=== PATIENT | male | born 1950 | race Caucasian/White ===

== ENCOUNTER 2022-11-21 11:24 | Inpatient (IN) ==
[2022-11-21] MEDS ORDERED: VANCOMYCIN INJ 1,000 MG in SODIUM CHLORIDE 0.9% 250 ML IV STA (12:16)
[2022-11-21] MEDS ORDERED: MORPHINE 2 MG/1 ML SYRINGE IV ONE (12:16)
[2022-11-21] MEDS ORDERED: ONDANSETRON 4 MG/2 ML VIAL IV ONE (12:16)
[2022-11-21 13:36] LABS: Basophils % 0.8 % (0.0-0.8); Eosinophils % 2.3 % (0.00-10.9); Hematocrit 22.8 VOL% (42.0-52.0); Hemoglobin 7.6 GM/DL (14.0-18.0); Immature Granulocytes % 10.1 %; Immature Granulocytes Absolute 0.13 #; Lymphocytes # 0.2 10*3/uL (1.4-4.0); Lymphocytes % 17.8 % (21.2-54.2); Mean Corpuscular HGB Conc 33.3 GM/DL (32-36); Mean Corpuscular Volume 93.8 FL (87-102); Mean Platelet Volume 8.5 FL (9.6-12.0); Monocytes # 0.2 10*3/uL (0.11-0.8); Monocytes % 16.3 % (1.7-12.7); NRBC # 0.06 10*3/uL; Neutrophils % 52.7 % (38.7-73.9); Red Blood Count 2.43 MC/CUMM (3.8-5.5); Red Cell Distribution Width 17.3 % (9.3-17.3); White Blood Count 1.3 T/CUMM (4-12)
[2022-11-21 13:45] LABS: Platelet Count 12 T/CUMM (130-400)
[2022-11-21 13:46] LABS: INR 1.1; PT Patient Result 11.9 SECS (10.1-12.1)
[2022-11-21] MEDS ORDERED: SODIUM CHLORIDE 0.9% 1,000 ML IV PRN (14:02)
[2022-11-21 14:07] LABS: Alanine Aminotransferase 21 U/L (16-61); Albumin 3.4 G/DL (3.4-5.0); Alkaline Phosphatase > 2330 U/L (45-117); Aspartate Amino Transferase 392 U/L (0-37); Blood Urea Nitrogen 13 MG/DL (7-18); Carbon Dioxide 27 MMOL/L (21-32); Chloride 103 MMOL/L (98-107); Glucose 163 MG/DL (74-106); Potassium 3.4 MMOL/L (3.5-5.1); Sodium 136 MMOL/L (136-145); Total Protein 5.5 G/DL (6.4-8.2)
[2022-11-21 14:30] LABS: Band Neutrophils 4 % (0-10); Eosinophils 2 % (0-10); Lymphocytes 23 % (20-55); Metamyelocytes 2 %; Myelocytes 1 %; Nucleated Red Blood Cells 2 /100 WBC (0-5); Total Cells Counted 100
[2022-11-21 14:31] LABS: Atypical Lymphocytes Few; Reactive Lymphocytes Slight
[2022-11-21 14:33] LABS: Platelet Estimate Decreased
[2022-11-21] MEDS ORDERED: ACETAMINOPHEN 325 MG TABLET PO PRN (15:32)
[2022-11-21] MEDS ORDERED: GLUCAGON 1 MG VIAL IM PRN (15:35)
[2022-11-21] MEDS ORDERED: DEXTROSE 10% 250 ML BAG IV PRN (15:35)
[2022-11-21] MEDS: INSULIN REGULAR 100 UNIT/ML SUBCUT SCH ×2 (16:30→20:22)
[2022-11-21] MEDS ORDERED: fentaNYL 100 MCG/HR PATCH TRANSDERM SCH (18:00)
[2022-11-21] MEDS: LORATADINE 10 MG TABLET PO SCH (20:20)
[2022-11-22 00:53] LABS: RBC,Urine 2 /HPF (0-4)
[2022-11-22 00:55] LABS: Bilirubin,Urine Negative (Negative); Blood, Urine Negative (Negative); Glucose,Urine (UA) Negative (Negative); Ketones,Urine Negative (Negative); Nitrite,Urine Negative (Negative); Protein,Urine Negative (Negative); Urine Appearance Clear (Clear); Urine Color Yellow (Yellow)
[2022-11-22 04:24] LABS: Basophils % 1.8 % (0.0-0.8); Eosinophils % 5.5 % (0.00-10.9); Hematocrit 24.2 VOL% (42.0-52.0); Immature Granulocytes % 9.1 %; Immature Granulocytes Absolute 0.05 #; Lymphocytes # 0.2 10*3/uL (1.4-4.0); Mean Corpuscular HGB Conc 33.1 GM/DL (32-36); Mean Corpuscular Volume 93.8 FL (87-102); Mean Platelet Volume 10.3 FL (9.6-12.0); Monocytes # 0.1 10*3/uL (0.11-0.8); Monocytes % 21.8 % (1.7-12.7); NRBC # 0.09 10*3/uL; Neutrophils % 21.8 % (38.7-73.9); Platelet Count 57 T/CUMM (130-400); Red Blood Count 2.58 MC/CUMM (3.8-5.5); Red Cell Distribution Width 16.3 % (9.3-17.3)
[2022-11-22 04:34] LABS: Calcium 7.7 MG/DL (8.5-10.1); Osmolality,Calculated 271.8 MOS/KG (273-304)
[2022-11-22 04:42] LABS: White Blood Count 0.6 T/CUMM (4-12)
[2022-11-22 04:48] LABS: Hypochromia Slight; Lymphocytes 30 % (20-55); Microcytosis Slight; Nucleated Red Blood Cells 1 /100 WBC (0-5); Platelet Estimate Decreased; Total Cells Counted 100
[2022-11-22] MEDS: LEVOTHYROXINE 175 MCG TABLET PO SCH (06:13)
[2022-11-22] MEDS: INSULIN REGULAR 100 UNIT/ML SUBCUT SCH ×4 (07:51→21:14)
[2022-11-22] MEDS: DEXAMETHASONE 0.5 MG TABLET PO SCH (10:21)
[2022-11-22] MEDS: cefTRIAXone 2,000 MG in SODIUM CHLORIDE 0.9% 100 ML IV SCH (10:23)
[2022-11-22] MEDS: sitaGLIPtin 25 MG TABLET PO SCH (10:23)
[2022-11-22] MEDS ORDERED: ALBUTEROL 2.5 MG/3 ML NEB RESP TX PRN (10:56)
[2022-11-22] MEDS: CITALOPRAM 20 MG TABLET PO SCH (12:00)
[2022-11-22] MEDS: lisinopriL 10 MG TABLET PO SCH (12:01)
[2022-11-22] MEDS: hydroCHLOROthiazide 12.5 MG CAPSULE PO SCH (12:53)
[2022-11-22] MEDS: allopurinoL 300 MG TABLET PO SCH (12:57)
[2022-11-22] MEDS ORDERED: ZINC OXIDE PASTE 113 GM TUBE TOP PRN (15:40)
[2022-11-22] MEDS: FILGRASTIM-SNDZ 480 MCG/0.8 ML SYRINGE SUBCUT SCH (17:07)
[2022-11-22] MEDS: MULTIVITAMIN (BEROCCA) TABLET PO SCH (17:07)
[2022-11-22] MEDS: PSYLLIUM POWDER 3.7 GM/PACK PO SCH (17:07)
[2022-11-22] MEDS: LORATADINE 10 MG TABLET PO SCH (21:13)
[2022-11-22] MEDS: MULTIVITAMIN (CENTRUM) TABLET PO SCH (21:14)
[2022-11-23 05:33] LABS: Basophils % 1.2 % (0.0-0.8); Eosinophils % 3.7 % (0.00-10.9); Hematocrit 25.1 VOL% (42.0-52.0); Hemoglobin 8.3 GM/DL (14.0-18.0); Immature Granulocytes % 6.2 %; Immature Granulocytes Absolute 0.05 #; Lymphocytes # 0.3 10*3/uL (1.4-4.0); Lymphocytes % 32.1 % (21.2-54.2); Mean Corpuscular HGB Conc 33.1 GM/DL (32-36); Mean Corpuscular Volume 95.1 FL (87-102); Mean Platelet Volume 9.9 FL (9.6-12.0); Monocytes # 0.2 10*3/uL (0.11-0.8); Monocytes % 19.8 % (1.7-12.7); NRBC # 0.05 10*3/uL; Platelet Count 47 T/CUMM (130-400); Red Blood Count 2.64 MC/CUMM (3.8-5.5)
[2022-11-23 05:40] LABS: Calcium 8.4 MG/DL (8.5-10.1); Osmolality,Calculated 276.7 MOS/KG (273-304); Potassium 3.7 MMOL/L (3.5-5.1)
[2022-11-23] MEDS: LEVOTHYROXINE 175 MCG TABLET PO SCH (05:50)
[2022-11-23 06:06] LABS: White Blood Count 0.8 T/CUMM (4-12)
[2022-11-23 06:33] LABS: Band Neutrophils 2 % (0-10); Eosinophils 4 % (0-10); Lymphocytes 34 % (20-55); Nucleated Red Blood Cells 4 /100 WBC (0-5); Platelet Estimate Decreased; Total Cells Counted 100
[2022-11-23 06:34] LABS: Hypochromia Slight
[2022-11-23] MEDS: INSULIN REGULAR 100 UNIT/ML SUBCUT SCH ×4 (07:43→21:50)
[2022-11-23] MEDS: cefTRIAXone 2,000 MG in SODIUM CHLORIDE 0.9% 100 ML IV SCH (09:15)
[2022-11-23] MEDS: FILGRASTIM-SNDZ 480 MCG/0.8 ML SYRINGE SUBCUT SCH (09:16)
[2022-11-23] MEDS: sitaGLIPtin 25 MG TABLET PO SCH (09:17)
[2022-11-23] MEDS: hydroCHLOROthiazide 12.5 MG CAPSULE PO SCH (09:17)
[2022-11-23] MEDS: DEXAMETHASONE 0.5 MG TABLET PO SCH (09:17)
[2022-11-23] MEDS: allopurinoL 300 MG TABLET PO SCH (09:17)
[2022-11-23] MEDS: PSYLLIUM POWDER 3.7 GM/PACK PO SCH (09:18)
[2022-11-23] MEDS: CITALOPRAM 20 MG TABLET PO SCH (09:18)
[2022-11-23] MEDS: lisinopriL 10 MG TABLET PO SCH (09:19)
[2022-11-23] MEDS: MULTIVITAMIN (BEROCCA) TABLET PO SCH (18:58)
[2022-11-23] MEDS ORDERED: SIMVASTATIN 10 MG TABLET PO SCH (21:00)
[2022-11-23] MEDS: LORATADINE 10 MG TABLET PO SCH (21:43)
[2022-11-23] MEDS: MULTIVITAMIN (CENTRUM) TABLET PO SCH (21:43)
[2022-11-23] MEDS: fentaNYL 100 MCG/HR PATCH TRANSDERM SCH (21:44)
[2022-11-24] MEDS: LEVOTHYROXINE 175 MCG TABLET PO SCH (05:39)
[2022-11-24 05:41] LABS: Basophils % 1.2 % (0.0-0.8); Eosinophils # 0.1 10*3/uL (0.0-0.87); Eosinophils % 3.7 % (0.00-10.9); Hematocrit 26.7 VOL% (42.0-52.0); Hemoglobin 8.6 GM/DL (14.0-18.0); Immature Granulocytes % 11.1 %; Immature Granulocytes Absolute 0.18 #; Lymphocytes # 0.4 10*3/uL (1.4-4.0); Lymphocytes % 24.1 % (21.2-54.2); Mean Corpuscular HGB Conc 32.2 GM/DL (32-36); Mean Corpuscular Volume 95.7 FL (87-102); Mean Platelet Volume 10.7 FL (9.6-12.0); Monocytes # 0.3 10*3/uL (0.11-0.8); Monocytes % 17.9 % (1.7-12.7); NRBC # 0.06 10*3/uL; Platelet Count 40 T/CUMM (130-400); Red Blood Count 2.79 MC/CUMM (3.8-5.5); Red Cell Distribution Width 16.9 % (9.3-17.3); White Blood Count 1.6 T/CUMM (4-12)
[2022-11-24 05:59] LABS: Calcium 8.1 MG/DL (8.5-10.1); Osmolality,Calculated 281.3 MOS/KG (273-304); Potassium 3.8 MMOL/L (3.5-5.1)
[2022-11-24 06:13] LABS: Band Neutrophils 3 % (0-10); Eosinophils 9 % (0-10); Hypochromia 1+; Lymphocytes 29 % (20-55); Nucleated Red Blood Cells 13 /100 WBC (0-5); Platelet Estimate Decreased; Total Cells Counted 100
[2022-11-24] MEDS: INSULIN REGULAR 100 UNIT/ML SUBCUT SCH ×4 (08:24→21:00)
[2022-11-24] MEDS ORDERED: MYLANTA/LIDO VISC 2:1 300 ML BOTTLE SWISH/SPIT PRN (09:25)
[2022-11-24] MEDS: cefTRIAXone 2,000 MG in SODIUM CHLORIDE 0.9% 100 ML IV SCH (09:47)
[2022-11-24] MEDS: NAPROXEN 250 MG TABLET PO SCH ×2 (09:47→21:53)
[2022-11-24] MEDS: allopurinoL 300 MG TABLET PO SCH (09:48)
[2022-11-24] MEDS: DEXAMETHASONE 0.5 MG TABLET PO SCH (09:48)
[2022-11-24] MEDS: sitaGLIPtin 25 MG TABLET PO SCH (09:48)
[2022-11-24] MEDS: hydroCHLOROthiazide 12.5 MG CAPSULE PO SCH (09:48)
[2022-11-24] MEDS: CITALOPRAM 20 MG TABLET PO SCH (09:49)
[2022-11-24] MEDS: PSYLLIUM POWDER 3.7 GM/PACK PO SCH (09:49)
[2022-11-24] MEDS: lisinopriL 10 MG TABLET PO SCH (09:50)
[2022-11-24] MEDS: FILGRASTIM-SNDZ 480 MCG/0.8 ML SYRINGE SUBCUT SCH (12:04)
[2022-11-24] MEDS: MULTIVITAMIN (BEROCCA) TABLET PO SCH (18:26)
[2022-11-24] MEDS: LORATADINE 10 MG TABLET PO SCH (21:53)
[2022-11-24] MEDS: MULTIVITAMIN (CENTRUM) TABLET PO SCH (21:54)
[2022-11-25] MEDS: LEVOTHYROXINE 175 MCG TABLET PO SCH (05:26)
[2022-11-25 06:59] LABS: Basophils % 1.4 % (0.0-0.8); Eosinophils # 0.1 10*3/uL (0.0-0.87); Eosinophils % 3.2 % (0.00-10.9); Hematocrit 25.1 VOL% (42.0-52.0); Immature Granulocytes % 1.4 %; Immature Granulocytes Absolute 0.03 #; Lymphocytes # 0.5 10*3/uL (1.4-4.0); Lymphocytes % 22.1 % (21.2-54.2); Mean Corpuscular HGB Conc 31.9 GM/DL (32-36); Mean Corpuscular Volume 96.5 FL (87-102); Mean Platelet Volume 10.9 FL (9.6-12.0); Monocytes # 0.4 10*3/uL (0.11-0.8); Monocytes % 16.7 % (1.7-12.7); NRBC # 0.07 10*3/uL; Neutrophils % 55.2 % (38.7-73.9); Red Cell Distribution Width 17.2 % (9.3-17.3); White Blood Count 2.2 T/CUMM (4-12)
[2022-11-25 07:09] LABS: Albumin 3.2 G/DL (3.4-5.0); Bilirubin,Total 0.6 MG/DL (0.20-1.00); Osmolality,Calculated 277.7 MOS/KG (273-304); Potassium 3.9 MMOL/L (3.5-5.1); Total Protein 5.2 G/DL (6.4-8.2)
[2022-11-25 07:12] LABS: Platelet Count 30 T/CUMM (130-400)
[2022-11-25 07:23] LABS: Band Neutrophils 1 % (0-10); Eosinophils 7 % (0-10); Lymphocytes 27 % (20-55); Metamyelocytes 1 %; Nucleated Red Blood Cells 5 /100 WBC (0-5); Total Cells Counted 100
[2022-11-25 07:24] LABS: Hypochromia Slight; Microcytosis Slight; Platelet Estimate Decreased
[2022-11-25] MEDS: INSULIN REGULAR 100 UNIT/ML SUBCUT SCH ×4 (08:00→21:24)
[2022-11-25] MEDS: allopurinoL 300 MG TABLET PO SCH (08:10)
[2022-11-25] MEDS: DEXAMETHASONE 0.5 MG TABLET PO SCH (08:10)
[2022-11-25] MEDS: hydroCHLOROthiazide 12.5 MG CAPSULE PO SCH (08:10)
[2022-11-25] MEDS: PSYLLIUM POWDER 3.7 GM/PACK PO SCH (08:11)
[2022-11-25] MEDS: NAPROXEN 250 MG TABLET PO SCH ×2 (08:13→21:22)
[2022-11-25] MEDS: sitaGLIPtin 25 MG TABLET PO SCH (08:13)
[2022-11-25] MEDS: cefTRIAXone 2,000 MG in SODIUM CHLORIDE 0.9% 100 ML IV SCH (08:14)
[2022-11-25] MEDS: MORPHINE 2 MG/1 ML SYRINGE IV PRN ×2 (08:21→12:10)
[2022-11-25] MEDS ORDERED: VANCOMYCIN INJ 1,250 MG in SODIUM CHLORIDE 0.9% 250 ML IV SCH (09:00)
[2022-11-25] MEDS: lisinopriL 10 MG TABLET PO SCH (10:28)
[2022-11-25] MEDS: CITALOPRAM 20 MG TABLET PO SCH (10:28)
[2022-11-25] MEDS: VANCOMYCIN INJ 1,750 MG in SODIUM CHLORIDE 0.9% 500 ML IV SCH ×2 (12:03→22:55)
[2022-11-25] MEDS: MULTIVITAMIN (BEROCCA) TABLET PO SCH (18:26)
[2022-11-25] MEDS: MULTIVITAMIN (CENTRUM) TABLET PO SCH (21:22)
[2022-11-25] MEDS: LORATADINE 10 MG TABLET PO SCH (21:22)
[2022-11-25] MEDS: LIDOCAINE 5% PATCH TRANSDERM SCH (21:22)
[2022-11-26 05:38] LABS: Eosinophils # 0.1 10*3/uL (0.0-0.87); Hematocrit 27.2 VOL% (42.0-52.0); Hemoglobin 8.6 GM/DL (14.0-18.0); Immature Granulocytes % 11.4 %; Immature Granulocytes Absolute 0.34 #; Lymphocytes # 0.6 10*3/uL (1.4-4.0); Lymphocytes % 21.5 % (21.2-54.2); Mean Corpuscular HGB Conc 31.6 GM/DL (32-36); Mean Corpuscular Volume 96.1 FL (87-102); Mean Platelet Volume 10.2 FL (9.6-12.0); Monocytes # 0.4 10*3/uL (0.11-0.8); Monocytes % 14.1 % (1.7-12.7); NRBC # 0.13 10*3/uL; Red Blood Count 2.83 MC/CUMM (3.8-5.5); Red Cell Distribution Width 16.9 % (9.3-17.3)
[2022-11-26 05:53] LABS: Platelet Count 27 T/CUMM (130-400)
[2022-11-26 05:58] LABS: Anisocytosis 1+; Band Neutrophils 3 % (0-10); Eosinophils 2 % (0-10); Lymphocytes 23 % (20-55); Nucleated Red Blood Cells 6 /100 WBC (0-5); Total Cells Counted 100
[2022-11-26 05:59] LABS: Ovalocytes Slight; Platelet Estimate Decreased; Tear Drop Cells Slight
[2022-11-26 06:01] LABS: Albumin 3.2 G/DL (3.4-5.0); Bilirubin,Total 0.6 MG/DL (0.20-1.00); Calcium 8.2 MG/DL (8.5-10.1); Osmolality,Calculated 278.5 MOS/KG (273-304); Total Protein 5.8 G/DL (6.4-8.2)
[2022-11-26] MEDS: LEVOTHYROXINE 175 MCG TABLET PO SCH (06:03)
[2022-11-26] MEDS: INSULIN REGULAR 100 UNIT/ML SUBCUT SCH ×4 (09:28→20:57)
[2022-11-26] MEDS: sitaGLIPtin 25 MG TABLET PO SCH (09:34)
[2022-11-26] MEDS: allopurinoL 300 MG TABLET PO SCH (09:34)
[2022-11-26] MEDS: DEXAMETHASONE 0.5 MG TABLET PO SCH (09:34)
[2022-11-26] MEDS: LIDOCAINE 5% PATCH TRANSDERM SCH (09:35)
[2022-11-26] MEDS: NAPROXEN 250 MG TABLET PO SCH ×2 (09:35→20:55)
[2022-11-26] MEDS: CITALOPRAM 20 MG TABLET PO SCH (09:35)
[2022-11-26] MEDS ORDERED: SODIUM CHLORIDE 0.9% 1,000 ML IV PRN (10:49)
[2022-11-26] MEDS: VANCOMYCIN INJ 1,750 MG in SODIUM CHLORIDE 0.9% 500 ML IV SCH (11:12)
[2022-11-26] MEDS: PSYLLIUM POWDER 3.7 GM/PACK PO SCH (14:55)
[2022-11-26] MEDS: cephALEXin 500 MG CAPSULE PO SCH ×3 (14:58→20:55)
[2022-11-26] MEDS: MULTIVITAMIN (BEROCCA) TABLET PO SCH (18:17)
[2022-11-26] MEDS: MULTIVITAMIN (CENTRUM) TABLET PO SCH (20:55)
[2022-11-26] MEDS: LORATADINE 10 MG TABLET PO SCH (20:55)
[2022-11-26] MEDS: fentaNYL 100 MCG/HR PATCH TRANSDERM SCH (20:56)
[2022-11-26] MEDS ORDERED: cephALEXin 500 MG CAPSULE PO SCH (21:00)
[2022-11-27] MEDS: MORPHINE 2 MG/1 ML SYRINGE IV PRN (00:15)
[2022-11-27 05:42] LABS: Basophils % 1.2 % (0.0-0.8); Eosinophils # 0.1 10*3/uL (0.0-0.87); Eosinophils % 2.4 % (0.00-10.9); Hematocrit 26.8 VOL% (42.0-52.0); Hemoglobin 8.6 GM/DL (14.0-18.0); Immature Granulocytes % 8.4 %; Immature Granulocytes Absolute 0.28 #; Lymphocytes # 0.8 10*3/uL (1.4-4.0); Lymphocytes % 22.8 % (21.2-54.2); Mean Corpuscular HGB Conc 32.1 GM/DL (32-36); Mean Corpuscular Volume 96.8 FL (87-102); Mean Platelet Volume 10.1 FL (9.6-12.0); Monocytes # 0.6 10*3/uL (0.11-0.8); Monocytes % 19.2 % (1.7-12.7); NRBC # 0.19 10*3/uL; Platelet Count 42 T/CUMM (130-400); Red Blood Count 2.77 MC/CUMM (3.8-5.5); Red Cell Distribution Width 17.2 % (9.3-17.3); White Blood Count 3.3 T/CUMM (4-12)
[2022-11-27] MEDS: LEVOTHYROXINE 175 MCG TABLET PO SCH (05:57)
[2022-11-27 06:17] LABS: Atypical Lymphocytes Few; Band Neutrophils 23 % (0-10); Eosinophils 1 % (0-10); Lymphocytes 24 % (20-55); Metamyelocytes 6 %; Myelocytes 1 %; Nucleated Red Blood Cells 2 /100 WBC (0-5); Platelet Estimate Decreased; Total Cells Counted 100
[2022-11-27 06:18] LABS: Anisocytosis Slight; Tear Drop Cells Few
[2022-11-27 06:59] LABS: Albumin 3.6 G/DL (3.4-5.0); Bilirubin,Total 0.9 MG/DL (0.20-1.00); Calcium 8.6 MG/DL (8.5-10.1); Osmolality,Calculated 282.3 MOS/KG (273-304); Total Protein 5.9 G/DL (6.4-8.2)
[2022-11-27 07:59] VITALS: BP 149/72
[2022-11-27] MEDS: INSULIN REGULAR 100 UNIT/ML SUBCUT SCH ×2 (08:01→13:06)
[2022-11-27] MEDS ORDERED: lisinopriL 10 MG TABLET PO SCH (09:00)
[2022-11-27] MEDS: cephALEXin 500 MG CAPSULE PO SCH (09:04)
[2022-11-27] MEDS: DEXAMETHASONE 0.5 MG TABLET PO SCH (09:05)
[2022-11-27] MEDS: sitaGLIPtin 25 MG TABLET PO SCH (09:05)
[2022-11-27] MEDS: allopurinoL 300 MG TABLET PO SCH (09:05)
[2022-11-27] MEDS: LIDOCAINE 5% PATCH TRANSDERM SCH (09:07)
[2022-11-27] MEDS: CITALOPRAM 20 MG TABLET PO SCH (09:07)
[2022-11-27] MEDS: PSYLLIUM POWDER 3.7 GM/PACK PO SCH (09:07)
[2022-11-27] MEDS: NAPROXEN 250 MG TABLET PO SCH (09:08)
== END 2022-11-27 12:07 | disposition home or self-care (01) | DRG 638 ==
LOC: N.ED 11:24 → N.EDINP 15:28 → SUATTDRO 15:28 → N.TELES 16:20
PROVIDERS: ADMIT Hospitalist; ATTEND Internal Medicine

== ENCOUNTER 2022-12-03 13:39 | Inpatient (IN) ==
[2022-12-03 15:39] LABS: Basophils % 1.1 % (0.0-0.8); Eosinophils # 0.1 10*3/uL (0.0-0.87); Eosinophils % 2.8 % (0.00-10.9); Hematocrit 24.7 VOL% (42.0-52.0); Hemoglobin 8.2 GM/DL (14.0-18.0); Immature Granulocytes % 10.1 %; Immature Granulocytes Absolute 0.18 #; Lymphocytes # 0.4 10*3/uL (1.4-4.0); Lymphocytes % 21.2 % (21.2-54.2); Mean Corpuscular HGB Conc 33.2 GM/DL (32-36); Mean Corpuscular Volume 92.9 FL (87-102); Mean Platelet Volume 11.1 FL (9.6-12.0); Monocytes # 0.3 10*3/uL (0.11-0.8); Monocytes % 14.5 % (1.7-12.7); NRBC # 0.16 10*3/uL; Neutrophils % 50.3 % (38.7-73.9); Red Blood Count 2.66 MC/CUMM (3.8-5.5); Red Cell Distribution Width 16.5 % (9.3-17.3); White Blood Count 1.8 T/CUMM (4-12)
[2022-12-03 15:41] LABS: Platelet Count 9 T/CUMM (130-400)
[2022-12-03 16:06] LABS: Bilirubin,Total 1.1 MG/DL (0.20-1.00); Calcium 7.6 MG/DL (8.5-10.1); Osmolality,Calculated 274.8 MOS/KG (273-304); Potassium 3.4 MMOL/L (3.5-5.1); Total Protein 5.1 G/DL (6.4-8.2)
[2022-12-03] MEDS ORDERED: PIPERACILLIN/TAZOBACTAM 3,375 MG in SODIUM CHLORIDE 0.9% 100 ML IV STA (16:17)
[2022-12-03 16:23] LABS: RBC,Urine 1 /HPF (0-4)
[2022-12-03 16:25] LABS: Urine Appearance Clear (Clear); Urine Color Yellow (Yellow)
[2022-12-03 16:26] LABS: Bilirubin,Urine Negative (Negative); Blood, Urine Trace mg/dL (Negative); Glucose,Urine (UA) Negative (Negative); Ketones,Urine Negative (Negative); Nitrite,Urine Negative (Negative); Protein,Urine Negative (Negative); Urine Urobilinogen 0.2 eU/dL (<2.0)
[2022-12-03] MEDS ORDERED: VANCOMYCIN INJ 1,500 MG in SODIUM CHLORIDE 0.9% 500 ML IV SCH (17:00)
[2022-12-03] MEDS ORDERED: DEXTROSE 10% 250 ML BAG IV PRN (17:27)
[2022-12-03] MEDS ORDERED: GLUCAGON 1 MG VIAL IM PRN (17:27)
[2022-12-03] MEDS ORDERED: hydrALAZINE 20 MG/1 ML VIAL IV PRN (17:27)
[2022-12-03] MEDS ORDERED: guaiFENesin/DM ER 600-30 MG TABLET PO PRN (17:27)
[2022-12-03] MEDS ORDERED: ACETAMINOPHEN 325 MG TABLET PO PRN (17:27)
[2022-12-03] MEDS ORDERED: ONDANSETRON 4 MG/2 ML VIAL IV PRN (17:27)
[2022-12-03] MEDS ORDERED: ALBUTEROL 2.5 MG/3 ML NEB RESP TX PRN (17:39)
[2022-12-03 17:45] LABS: Band Neutrophils 8 % (0-10); Lymphocytes 24 % (20-55); Nucleated Red Blood Cells 3 /100 WBC (0-5); Total Cells Counted 100
[2022-12-03 17:46] LABS: Ovalocytes Slight; Polychromasia Slight
[2022-12-03 17:47] LABS: Platelet Estimate Decreased
[2022-12-03] MEDS: ALBUTEROL 2.5 MG/3 ML NEB RESP TX SCH (19:41)
[2022-12-03] MEDS ORDERED: SODIUM CHLORIDE 0.9% 1,000 ML IV PRN (19:47)
[2022-12-03] MEDS ORDERED: POTASSIUM CHLORIDE 10 MEQ TABLET PO ONE (19:50)
[2022-12-03 20:01] LABS: % Iron Saturation 98.2 % (18-50)
[2022-12-03 20:13] LABS: Folate 23.82 NG/ML (5.38-24.0)
[2022-12-03] MEDS: INSULIN REGULAR 100 UNIT/ML SUBCUT SCH (21:29)
[2022-12-03] MEDS: CEFEPIME 1,000 MG in SODIUM CHLORIDE 0.9% 100 ML IV SCH (21:45)
[2022-12-04] MEDS: ALBUTEROL 2.5 MG/3 ML NEB RESP TX SCH ×4 (00:25→19:14)
[2022-12-04] MEDS: CEFEPIME 1,000 MG in SODIUM CHLORIDE 0.9% 100 ML IV SCH ×4 (02:05→21:48)
[2022-12-04] MEDS: LEVOTHYROXINE 175 MCG TABLET PO SCH (05:26)
[2022-12-04 05:48] LABS: Basophils % 1.7 % (0.0-0.8); Eosinophils # 0.1 10*3/uL (0.0-0.87); Eosinophils % 2.9 % (0.00-10.9); Hematocrit 23.6 VOL% (42.0-52.0); Hemoglobin 7.8 GM/DL (14.0-18.0); Immature Granulocytes % 10.9 %; Immature Granulocytes Absolute 0.19 #; Lymphocytes # 0.5 10*3/uL (1.4-4.0); Lymphocytes % 28.6 % (21.2-54.2); Mean Corpuscular HGB Conc 33.1 GM/DL (32-36); Mean Corpuscular Volume 91.1 FL (87-102); Mean Platelet Volume 11.8 FL (9.6-12.0); Monocytes # 0.3 10*3/uL (0.11-0.8); Monocytes % 17.1 % (1.7-12.7); NRBC # 0.22 10*3/uL; Neutrophils % 38.8 % (38.7-73.9); Red Blood Count 2.59 MC/CUMM (3.8-5.5); Red Cell Distribution Width 16.7 % (9.3-17.3); White Blood Count 1.8 T/CUMM (4-12)
[2022-12-04 05:50] LABS: Platelet Count 9 T/CUMM (130-400)
[2022-12-04 06:10] LABS: Calcium 8.1 MG/DL (8.5-10.1); Osmolality,Calculated 278.4 MOS/KG (273-304); Potassium 3.1 MMOL/L (3.5-5.1)
[2022-12-04 06:17] LABS: Band Neutrophils 3 % (0-10); Eosinophils 2 % (0-10); Hypochromia Slight; Lymphocytes 37 % (20-55); Microcytosis 1+; Nucleated Red Blood Cells 15 /100 WBC (0-5); Risk Ratio 3.34; Total Cells Counted 100
[2022-12-04 06:18] LABS: Ovalocytes Slight; Polychromasia Slight
[2022-12-04 06:19] LABS: Platelet Estimate Decreased
[2022-12-04] MEDS: INSULIN REGULAR 100 UNIT/ML SUBCUT SCH ×4 (08:04→21:56)
[2022-12-04] MEDS: CALCIUM CARBONATE CHEW 500 MG TABLET PO PRN (09:05)
[2022-12-04] MEDS: PANTOPRAZOLE 40 MG TABLET PO SCH (09:11)
[2022-12-04] MEDS: hydroCHLOROthiazide 12.5 MG CAPSULE PO SCH (09:12)
[2022-12-04] MEDS: sitaGLIPtin 25 MG TABLET PO SCH (09:12)
[2022-12-04] MEDS: DEXAMETHASONE 0.5 MG TABLET PO SCH (09:12)
[2022-12-04] MEDS: allopurinoL 300 MG TABLET PO SCH (09:12)
[2022-12-04 12:35] LABS: Basophils % 1.2 % (0.0-0.8); Eosinophils # 0.1 10*3/uL (0.0-0.87); Eosinophils % 2.9 % (0.00-10.9); Hematocrit 23.4 VOL% (42.0-52.0); Hemoglobin 7.8 GM/DL (14.0-18.0); Immature Granulocytes % 15.1 %; Immature Granulocytes Absolute 0.26 #; Lymphocytes # 0.5 10*3/uL (1.4-4.0); Lymphocytes % 26.2 % (21.2-54.2); Mean Corpuscular HGB Conc 33.3 GM/DL (32-36); Mean Corpuscular Volume 91.8 FL (87-102); Mean Platelet Volume 9.7 FL (9.6-12.0); Monocytes # 0.3 10*3/uL (0.11-0.8); NRBC # 0.25 10*3/uL; Neutrophils % 36.6 % (38.7-73.9); Red Blood Count 2.55 MC/CUMM (3.8-5.5); Red Cell Distribution Width 16.6 % (9.3-17.3); White Blood Count 1.7 T/CUMM (4-12)
[2022-12-04 12:43] LABS: Platelet Count 25 T/CUMM (130-400)
[2022-12-04] MEDS: VANCOMYCIN INJ 1,500 MG in SODIUM CHLORIDE 0.9% 500 ML IV SCH (12:57)
[2022-12-04 13:14] LABS: Band Neutrophils 8 % (0-10); Eosinophils 3 % (0-10); Lymphocytes 32 % (20-55); Metamyelocytes 1 %; Nucleated Red Blood Cells 16 /100 WBC (0-5); Total Cells Counted 100
[2022-12-04 13:15] LABS: Platelet Estimate Decreased
[2022-12-04] MEDS ORDERED: SKIN HEALING OINT (AQUAPHOR) 50 GM TUBE TOP PRN (14:32)
[2022-12-04] MEDS: POTASSIUM CHLORIDE 20 MEQ TABLET PO PRN ×3 (14:58→21:45)
[2022-12-04] MEDS: MULTIVITAMIN (BEROCCA) TABLET PO SCH (17:49)
[2022-12-04] MEDS: fentaNYL 100 MCG/HR PATCH TRANSDERM SCH (17:50)
[2022-12-04] MEDS: MULTIVITAMIN (CENTRUM) TABLET PO SCH (21:39)
[2022-12-04] MEDS: LORATADINE 10 MG TABLET PO SCH (21:40)
[2022-12-05] MEDS ORDERED: ZALEPLON 5 MG CAPSULE PO ONE (00:30)
[2022-12-05] MEDS: POTASSIUM CHLORIDE 20 MEQ TABLET PO PRN (00:39)
[2022-12-05] MEDS: ALBUTEROL 2.5 MG/3 ML NEB RESP TX SCH ×4 (01:12→19:24)
[2022-12-05] MEDS: CEFEPIME 1,000 MG in SODIUM CHLORIDE 0.9% 100 ML IV SCH ×4 (05:30→21:59)
[2022-12-05] MEDS: LEVOTHYROXINE 175 MCG TABLET PO SCH (05:35)
[2022-12-05 06:20] LABS: Basophils % 1.6 % (0.0-0.8); Eosinophils # 0.1 10*3/uL (0.0-0.87); Eosinophils % 2.6 % (0.00-10.9); Hematocrit 24.6 VOL% (42.0-52.0); Hemoglobin 8.2 GM/DL (14.0-18.0); Immature Granulocytes Absolute 0.25 #; Lymphocytes # 0.5 10*3/uL (1.4-4.0); Mean Corpuscular HGB Conc 33.3 GM/DL (32-36); Mean Corpuscular Volume 92.8 FL (87-102); Mean Platelet Volume 9.7 FL (9.6-12.0); Monocytes # 0.4 10*3/uL (0.11-0.8); Monocytes % 20.8 % (1.7-12.7); NRBC # 0.32 10*3/uL; Red Blood Count 2.65 MC/CUMM (3.8-5.5); Red Cell Distribution Width 16.7 % (9.3-17.3); White Blood Count 1.9 T/CUMM (4-12)
[2022-12-05 06:22] LABS: Platelet Count 21 T/CUMM (130-400)
[2022-12-05 06:35] LABS: Calcium 8.6 MG/DL (8.5-10.1); Osmolality,Calculated 272.8 MOS/KG (273-304); Potassium 3.9 MMOL/L (3.5-5.1)
[2022-12-05 06:59] LABS: Band Neutrophils 19 % (0-10); Eosinophils 1 % (0-10); Lymphocytes 29 % (20-55); Metamyelocytes 4 %; Myelocytes 2 %; Nucleated Red Blood Cells 19 /100 WBC (0-5); Total Cells Counted 100
[2022-12-05 07:03] LABS: Anisocytosis Slight; Atypical Lymphocytes Few; Platelet Estimate Decreased; Polychromasia Slight
[2022-12-05] MEDS: INSULIN REGULAR 100 UNIT/ML SUBCUT SCH ×4 (07:44→21:58)
[2022-12-05] MEDS: DEXAMETHASONE 0.5 MG TABLET PO SCH (09:32)
[2022-12-05] MEDS: hydroCHLOROthiazide 12.5 MG CAPSULE PO SCH (09:33)
[2022-12-05] MEDS: sitaGLIPtin 25 MG TABLET PO SCH (09:33)
[2022-12-05] MEDS: allopurinoL 300 MG TABLET PO SCH (09:33)
[2022-12-05] MEDS: PANTOPRAZOLE 40 MG TABLET PO SCH (09:38)
[2022-12-05] MEDS: VANCOMYCIN 125 MG CAPSULE PO SCH ×3 (10:25→21:59)
[2022-12-05] MEDS: VANCOMYCIN INJ 1,500 MG in SODIUM CHLORIDE 0.9% 500 ML IV SCH (10:25)
[2022-12-05] MEDS: MULTIVITAMIN (BEROCCA) TABLET PO SCH (17:36)
[2022-12-05] MEDS: MULTIVITAMIN (CENTRUM) TABLET PO SCH (21:59)
[2022-12-05] MEDS: LORATADINE 10 MG TABLET PO SCH (21:59)
[2022-12-06] MEDS: ALBUTEROL 2.5 MG/3 ML NEB RESP TX SCH ×4 (00:39→20:07)
[2022-12-06] MEDS: VANCOMYCIN INJ 1,500 MG in SODIUM CHLORIDE 0.9% 500 ML IV SCH ×2 (02:27→22:31)
[2022-12-06] MEDS: VANCOMYCIN 125 MG CAPSULE PO SCH ×4 (04:34→21:16)
[2022-12-06] MEDS: CEFEPIME 1,000 MG in SODIUM CHLORIDE 0.9% 100 ML IV SCH ×4 (04:34→21:20)
[2022-12-06 05:34] LABS: Basophils % 1.1 % (0.0-0.8); Eosinophils # 0.1 10*3/uL (0.0-0.87); Eosinophils % 2.8 % (0.00-10.9); Hemoglobin 7.4 GM/DL (14.0-18.0); Immature Granulocytes % 12.7 %; Immature Granulocytes Absolute 0.23 #; Lymphocytes # 0.5 10*3/uL (1.4-4.0); Lymphocytes % 27.6 % (21.2-54.2); Mean Corpuscular HGB Conc 32.2 GM/DL (32-36); Mean Corpuscular Volume 96.2 FL (87-102); Mean Platelet Volume 9.1 FL (9.6-12.0); Monocytes # 0.3 10*3/uL (0.11-0.8); Monocytes % 17.7 % (1.7-12.7); NRBC # 0.21 10*3/uL; Neutrophils % 38.1 % (38.7-73.9); Red Blood Count 2.39 MC/CUMM (3.8-5.5); White Blood Count 1.8 T/CUMM (4-12)
[2022-12-06 05:39] LABS: Platelet Count 17 T/CUMM (130-400)
[2022-12-06 05:51] LABS: Calcium 8.4 MG/DL (8.5-10.1); Osmolality,Calculated 274.7 MOS/KG (273-304); Potassium 3.9 MMOL/L (3.5-5.1)
[2022-12-06] MEDS: LEVOTHYROXINE 175 MCG TABLET PO SCH (06:03)
[2022-12-06 07:26] LABS: Atypical Lymphocytes Few; Band Neutrophils 17 % (0-10); Eosinophils 5 % (0-10); Lymphocytes 36 % (20-55); Nucleated Red Blood Cells 19 /100 WBC (0-5); Platelet Estimate Decreased; Total Cells Counted 100
[2022-12-06 07:27] LABS: Anisocytosis Slight
[2022-12-06] MEDS: INSULIN REGULAR 100 UNIT/ML SUBCUT SCH ×4 (08:02→21:40)
[2022-12-06] MEDS ORDERED: SODIUM CHLORIDE 0.9% 1,000 ML IV PRN ×2 (09:25→11:13)
[2022-12-06] MEDS: hydroCHLOROthiazide 12.5 MG CAPSULE PO SCH (10:55)
[2022-12-06] MEDS: DEXAMETHASONE 0.5 MG TABLET PO SCH (10:55)
[2022-12-06] MEDS: PANTOPRAZOLE 40 MG TABLET PO SCH (10:55)
[2022-12-06] MEDS: sitaGLIPtin 25 MG TABLET PO SCH (10:55)
[2022-12-06] MEDS: allopurinoL 300 MG TABLET PO SCH (10:56)
[2022-12-06] MEDS ORDERED: MAGNESIUM SULF RIDER 2 GM/50 ML PREMIX IV ONE (13:00)
[2022-12-06] MEDS: MULTIVITAMIN (BEROCCA) TABLET PO SCH (18:07)
[2022-12-06] MEDS: LORATADINE 10 MG TABLET PO SCH (21:16)
[2022-12-06] MEDS: MULTIVITAMIN (CENTRUM) TABLET PO SCH (21:16)
[2022-12-07] MEDS: ALBUTEROL 2.5 MG/3 ML NEB RESP TX SCH ×4 (01:33→19:28)
[2022-12-07] MEDS: VANCOMYCIN 125 MG CAPSULE PO SCH ×4 (03:45→22:56)
[2022-12-07] MEDS: CEFEPIME 1,000 MG in SODIUM CHLORIDE 0.9% 100 ML IV SCH ×4 (04:05→22:55)
[2022-12-07] MEDS: LEVOTHYROXINE 175 MCG TABLET PO SCH (06:07)
[2022-12-07 08:15] LABS: Basophils # 0.1 10*3/uL (0.0-0.2); Basophils % 2.6 % (0.0-0.8); Eosinophils # 0.1 10*3/uL (0.0-0.87); Eosinophils % 4.3 % (0.00-10.9); Hematocrit 27.4 VOL% (42.0-52.0); Hemoglobin 9.1 GM/DL (14.0-18.0); Immature Granulocytes % 14.6 %; Immature Granulocytes Absolute 0.34 #; Lymphocytes # 0.7 10*3/uL (1.4-4.0); Lymphocytes % 29.2 % (21.2-54.2); Mean Corpuscular HGB Conc 33.2 GM/DL (32-36); Mean Corpuscular Volume 91.9 FL (87-102); Mean Platelet Volume 9.9 FL (9.6-12.0); Monocytes # 0.4 10*3/uL (0.11-0.8); Monocytes % 17.6 % (1.7-12.7); NRBC # 0.34 10*3/uL; Neutrophils % 31.7 % (38.7-73.9); Platelet Count 45 T/CUMM (130-400); Red Blood Count 2.98 MC/CUMM (3.8-5.5); Red Cell Distribution Width 17.1 % (9.3-17.3); White Blood Count 2.3 T/CUMM (4-12)
[2022-12-07] MEDS: INSULIN REGULAR 100 UNIT/ML SUBCUT SCH ×4 (08:22→22:56)
[2022-12-07 08:30] LABS: Calcium 8.8 MG/DL (8.5-10.1)
[2022-12-07] MEDS ORDERED: FUROSEMIDE 40 MG/4 ML VIAL IV ONE (08:50)
[2022-12-07 08:53] LABS: Band Neutrophils 10 % (0-10); Eosinophils 4 % (0-10); Hypochromia Slight; Lymphocytes 26 % (20-55); Microcytosis Slight; Nucleated Red Blood Cells 11 /100 WBC (0-5); Platelet Estimate Decreased; Total Cells Counted 100
[2022-12-07] MEDS: sitaGLIPtin 25 MG TABLET PO SCH (10:13)
[2022-12-07] MEDS: hydroCHLOROthiazide 12.5 MG CAPSULE PO SCH (10:13)
[2022-12-07] MEDS: DEXAMETHASONE 0.5 MG TABLET PO SCH (10:13)
[2022-12-07] MEDS: PANTOPRAZOLE 40 MG TABLET PO SCH (10:13)
[2022-12-07] MEDS: allopurinoL 300 MG TABLET PO SCH (10:15)
[2022-12-07] MEDS: VANCOMYCIN INJ 1,500 MG in SODIUM CHLORIDE 0.9% 500 ML IV SCH ×2 (10:18→23:59)
[2022-12-07] MEDS: FILGRASTIM-SNDZ 480 MCG/0.8 ML SYRINGE SUBCUT SCH (15:54)
[2022-12-07] MEDS: MULTIVITAMIN (BEROCCA) TABLET PO SCH (17:33)
[2022-12-07] MEDS: fentaNYL 100 MCG/HR PATCH TRANSDERM SCH (18:20)
[2022-12-07] MEDS: MULTIVITAMIN (CENTRUM) TABLET PO SCH (22:56)
[2022-12-07] MEDS: LORATADINE 10 MG TABLET PO SCH (22:56)
[2022-12-08] MEDS: ALBUTEROL 2.5 MG/3 ML NEB RESP TX SCH ×4 (00:09→20:49)
[2022-12-08] MEDS: CEFEPIME 1,000 MG in SODIUM CHLORIDE 0.9% 100 ML IV SCH ×4 (03:06→21:20)
[2022-12-08] MEDS: VANCOMYCIN 125 MG CAPSULE PO SCH ×4 (03:06→21:20)
[2022-12-08] MEDS: LEVOTHYROXINE 175 MCG TABLET PO SCH (05:52)
[2022-12-08 06:07] LABS: Basophils % 0.9 % (0.0-0.8); Eosinophils % 1.4 % (0.00-10.9); Hematocrit 24.3 VOL% (42.0-52.0); Hemoglobin 7.8 GM/DL (14.0-18.0); Immature Granulocytes % 7.7 %; Immature Granulocytes Absolute 0.17 #; Lymphocytes # 0.5 10*3/uL (1.4-4.0); Lymphocytes % 20.5 % (21.2-54.2); Mean Corpuscular HGB Conc 32.1 GM/DL (32-36); Mean Corpuscular Volume 94.6 FL (87-102); Mean Platelet Volume 11.2 FL (9.6-12.0); Monocytes # 0.3 10*3/uL (0.11-0.8); Monocytes % 13.2 % (1.7-12.7); NRBC # 0.21 10*3/uL; Neutrophils % 56.3 % (38.7-73.9); Red Blood Count 2.57 MC/CUMM (3.8-5.5); Red Cell Distribution Width 16.8 % (9.3-17.3)
[2022-12-08 06:24] LABS: Platelet Count 37 T/CUMM (130-400)
[2022-12-08 06:30] LABS: Calcium 8.3 MG/DL (8.5-10.1); Osmolality,Calculated 280.3 MOS/KG (273-304); Potassium 3.7 MMOL/L (3.5-5.1)
[2022-12-08 06:31] LABS: Band Neutrophils 6 % (0-10); Eosinophils 2 % (0-10); Lymphocytes 17 % (20-55); Nucleated Red Blood Cells 5 /100 WBC (0-5); Total Cells Counted 100
[2022-12-08 06:32] LABS: Hypochromia 1+; Platelet Estimate Decreased
[2022-12-08 06:46] LABS: Albumin 2.7 G/DL (3.4-5.0); Bilirubin,Total 0.8 MG/DL (0.20-1.00); Calcium 8.2 MG/DL (8.5-10.1); Osmolality,Calculated 280.3 MOS/KG (273-304); Potassium 3.7 MMOL/L (3.5-5.1); Total Protein 5.3 G/DL (6.4-8.2)
[2022-12-08] MEDS: sitaGLIPtin 25 MG TABLET PO SCH (08:59)
[2022-12-08] MEDS: allopurinoL 300 MG TABLET PO SCH (08:59)
[2022-12-08] MEDS: PANTOPRAZOLE 40 MG TABLET PO SCH (08:59)
[2022-12-08] MEDS: DEXAMETHASONE 0.5 MG TABLET PO SCH (08:59)
[2022-12-08] MEDS: INSULIN REGULAR 100 UNIT/ML SUBCUT SCH ×4 (09:00→21:20)
[2022-12-08] MEDS: hydroCHLOROthiazide 12.5 MG CAPSULE PO SCH (09:00)
[2022-12-08] MEDS: FILGRASTIM-SNDZ 480 MCG/0.8 ML SYRINGE SUBCUT SCH (09:11)
[2022-12-08] MEDS: VANCOMYCIN INJ 1,500 MG in SODIUM CHLORIDE 0.9% 500 ML IV SCH ×2 (11:00→22:23)
[2022-12-08] MEDS ORDERED: FUROSEMIDE 40 MG/4 ML VIAL IV ONE (14:01)
[2022-12-08] MEDS: MULTIVITAMIN (BEROCCA) TABLET PO SCH (17:28)
[2022-12-08] MEDS: CALCIUM CARBONATE CHEW 500 MG TABLET PO PRN (21:20)
[2022-12-08] MEDS: LORATADINE 10 MG TABLET PO SCH (21:20)
[2022-12-08] MEDS: MULTIVITAMIN (CENTRUM) TABLET PO SCH (21:20)
[2022-12-09] MEDS: ALBUTEROL 2.5 MG/3 ML NEB RESP TX SCH ×4 (01:50→20:02)
[2022-12-09] MEDS: CEFEPIME 1,000 MG in SODIUM CHLORIDE 0.9% 100 ML IV SCH ×2 (04:11→09:30)
[2022-12-09] MEDS: VANCOMYCIN 125 MG CAPSULE PO SCH ×4 (04:11→21:30)
[2022-12-09] MEDS: LEVOTHYROXINE 175 MCG TABLET PO SCH ×2 (04:12)
[2022-12-09 05:43] LABS: Basophils % 1.3 % (0.0-0.8); Eosinophils % 1.3 % (0.00-10.9); Hematocrit 23.1 VOL% (42.0-52.0); Hemoglobin 7.8 GM/DL (14.0-18.0); Immature Granulocytes Absolute 0.34 #; Lymphocytes # 0.5 10*3/uL (1.4-4.0); Lymphocytes % 15.6 % (21.2-54.2); Mean Corpuscular HGB Conc 33.8 GM/DL (32-36); Mean Corpuscular Volume 94.3 FL (87-102); Mean Platelet Volume 10.4 FL (9.6-12.0); Monocytes # 0.4 10*3/uL (0.11-0.8); NRBC # 0.17 10*3/uL; Neutrophils % 58.8 % (38.7-73.9); Red Blood Count 2.45 MC/CUMM (3.8-5.5); Red Cell Distribution Width 16.5 % (9.3-17.3); White Blood Count 3.08 T/CUMM (4-12)
[2022-12-09 05:48] LABS: Platelet Count 29 T/CUMM (130-400)
[2022-12-09 06:13] LABS: Band Neutrophils 4 % (0-10); Eosinophils 2 % (0-10); Hypochromia Slight; Lymphocytes 19 % (20-55); Metamyelocytes 1 %; Microcytosis Slight; Nucleated Red Blood Cells 4 /100 WBC (0-5); Platelet Estimate Decreased; Total Cells Counted 100
[2022-12-09 06:23] LABS: Albumin 2.7 G/DL (3.4-5.0); Bilirubin,Total 0.7 MG/DL (0.20-1.00); Osmolality,Calculated 276.5 MOS/KG (273-304); Potassium 3.7 MMOL/L (3.5-5.1); Total Protein 5.4 G/DL (6.4-8.2)
[2022-12-09] MEDS: INSULIN REGULAR 100 UNIT/ML SUBCUT SCH ×4 (07:59→21:32)
[2022-12-09] MEDS: allopurinoL 300 MG TABLET PO SCH (09:30)
[2022-12-09] MEDS: DEXAMETHASONE 0.5 MG TABLET PO SCH (09:30)
[2022-12-09] MEDS: hydroCHLOROthiazide 12.5 MG CAPSULE PO SCH (09:30)
[2022-12-09] MEDS: sitaGLIPtin 25 MG TABLET PO SCH (09:30)
[2022-12-09] MEDS: FUROSEMIDE 40 MG/4 ML VIAL IV SCH (09:30)
[2022-12-09] MEDS: PANTOPRAZOLE 40 MG TABLET PO SCH (10:13)
[2022-12-09] MEDS: FILGRASTIM-SNDZ 480 MCG/0.8 ML SYRINGE SUBCUT SCH (10:21)
[2022-12-09] MEDS: VANCOMYCIN INJ 1,500 MG in SODIUM CHLORIDE 0.9% 500 ML IV SCH (10:22)
[2022-12-09] MEDS: MULTIVITAMIN (BEROCCA) TABLET PO SCH (17:31)
[2022-12-09] MEDS: LORATADINE 10 MG TABLET PO SCH (21:30)
[2022-12-09] MEDS: MULTIVITAMIN (CENTRUM) TABLET PO SCH (21:30)
[2022-12-09] MEDS: CALCIUM CARBONATE CHEW 500 MG TABLET PO PRN (21:30)
[2022-12-10] MEDS: ALBUTEROL 2.5 MG/3 ML NEB RESP TX SCH ×2 (02:01→07:19)
[2022-12-10] MEDS: VANCOMYCIN 125 MG CAPSULE PO SCH ×2 (04:04→08:47)
[2022-12-10] MEDS: LEVOTHYROXINE 175 MCG TABLET PO SCH ×2 (04:04)
[2022-12-10 06:05] LABS: Eosinophils # 0.1 10*3/uL (0.0-0.87); Eosinophils % 1.6 % (0.00-10.9); Hematocrit 24.1 VOL% (42.0-52.0); Hemoglobin 7.8 GM/DL (14.0-18.0); Immature Granulocytes % 9.2 %; Immature Granulocytes Absolute 0.35 #; Lymphocytes # 0.5 10*3/uL (1.4-4.0); Lymphocytes % 13.4 % (21.2-54.2); Mean Corpuscular HGB Conc 32.4 GM/DL (32-36); Mean Corpuscular Volume 93.8 FL (87-102); Mean Platelet Volume 10.4 FL (9.6-12.0); Monocytes # 0.6 10*3/uL (0.11-0.8); Monocytes % 16.3 % (1.7-12.7); NRBC # 0.25 10*3/uL; Neutrophils % 58.5 % (38.7-73.9); Red Blood Count 2.57 MC/CUMM (3.8-5.5); Red Cell Distribution Width 16.4 % (9.3-17.3); White Blood Count 3.81 T/CUMM (4-12)
[2022-12-10 06:10] LABS: Platelet Count 25 T/CUMM (130-400)
[2022-12-10 06:27] LABS: Band Neutrophils 7 % (0-10); Eosinophils 4 % (0-10); Lymphocytes 13 % (20-55); Nucleated Red Blood Cells 4 /100 WBC (0-5); Total Cells Counted 100
[2022-12-10 06:29] LABS: Hypochromia Slight; Microcytosis Slight; Polychromasia Slight
[2022-12-10 06:30] LABS: Platelet Estimate Decreased
[2022-12-10 06:43] LABS: Albumin 2.8 G/DL (3.4-5.0); Bilirubin,Total 0.6 MG/DL (0.20-1.00); Calcium 8.4 MG/DL (8.5-10.1); Osmolality,Calculated 282.3 MOS/KG (273-304); Potassium 3.7 MMOL/L (3.5-5.1); Total Protein 5.4 G/DL (6.4-8.2)
[2022-12-10] MEDS: INSULIN REGULAR 100 UNIT/ML SUBCUT SCH (07:27)
[2022-12-10 08:20] VITALS: BP 121/61
[2022-12-10] MEDS: hydroCHLOROthiazide 12.5 MG CAPSULE PO SCH (08:46)
[2022-12-10] MEDS: DEXAMETHASONE 0.5 MG TABLET PO SCH (08:46)
[2022-12-10] MEDS: sitaGLIPtin 25 MG TABLET PO SCH (08:47)
[2022-12-10] MEDS: allopurinoL 300 MG TABLET PO SCH (08:47)
[2022-12-10] MEDS: PANTOPRAZOLE 40 MG TABLET PO SCH (08:47)
[2022-12-10] MEDS: fentaNYL 100 MCG/HR PATCH TRANSDERM SCH (08:48)
[2022-12-10] MEDS: FUROSEMIDE 40 MG/4 ML VIAL IV SCH (08:49)
[2022-12-10] MEDS ORDERED: BACILLUS COAGULANS CAPLET PO SCH (09:00)
[2022-12-10] MEDS: FILGRASTIM-SNDZ 480 MCG/0.8 ML SYRINGE SUBCUT SCH (10:39)
[2022-12-14] MEDS ORDERED: SIMVASTATIN 10 MG TABLET PO SCH (21:00)
== END 2022-12-10 12:48 | disposition home health service (06) | DRG 603 ==
LOC: N.ED 13:39 → SUATTDRO 17:27 → N.EDINP 17:27 → N.2E 22:31
PROVIDERS: ADMIT Emergency Medicine; ATTEND Internal Medicine

== ENCOUNTER 2022-12-22 06:30 | Inpatient (IN) ==
[2022-12-22] MEDS ORDERED: PANTOPRAZOLE 40 MG VIAL IV STA (06:57)
[2022-12-22] MEDS ORDERED: SODIUM CHLORIDE 0.9% 500 ML IV STA (06:57)
[2022-12-22] MEDS ORDERED: HYDROmorphone 1 MG/1 ML SYRINGE IV STA ×2 (06:58→09:26)
[2022-12-22] MEDS ORDERED: ONDANSETRON 4 MG/2 ML VIAL IV STA (06:58)
[2022-12-22 07:44] LABS: Basophils % 1.5 % (0.0-0.8); Eosinophils % 1.1 % (0.00-10.9); Hematocrit 20.6 VOL% (42.0-52.0); Hemoglobin 6.7 GM/DL (14.0-18.0); Immature Granulocytes % 9.2 %; Immature Granulocytes Absolute 0.25 #; Lymphocytes # 0.9 10*3/uL (1.4-4.0); Lymphocytes % 32.1 % (21.2-54.2); Mean Corpuscular HGB Conc 32.5 GM/DL (32-36); Mean Corpuscular Volume 93.6 FL (87-102); Mean Platelet Volume 9.5 FL (9.6-12.0); Monocytes # 0.4 10*3/uL (0.11-0.8); Monocytes % 13.7 % (1.7-12.7); NRBC # 0.47 10*3/uL; Neutrophils % 42.4 % (38.7-73.9); Red Cell Distribution Width 16.7 % (9.3-17.3); White Blood Count 2.71 T/CUMM (4-12)
[2022-12-22 07:47] LABS: Platelet Count 28 T/CUMM (130-400)
[2022-12-22] MEDS ORDERED: SODIUM CHLORIDE 0.9% 1,000 ML IV PRN (07:47)
[2022-12-22 08:08] LABS: Albumin 3.1 G/DL (3.4-5.0); Bilirubin,Total 0.8 MG/DL (0.20-1.00); Calcium 8.3 MG/DL (8.5-10.1); Osmolality,Calculated 277.8 MOS/KG (273-304); Potassium 3.9 MMOL/L (3.5-5.1); Total Protein 5.2 G/DL (6.4-8.2)
[2022-12-22 08:22] LABS: Anisocytosis 1+; Band Neutrophils 5 % (0-10); Eosinophils 3 % (0-10); Lymphocytes 34 % (20-55); Metamyelocytes 1 %; Microcytosis 1+; Nucleated Red Blood Cells 13 /100 WBC (0-5); Ovalocytes Slight; Polychromasia Slight; Tear Drop Cells Slight; Total Cells Counted 100
[2022-12-22 08:23] LABS: Platelet Estimate Decreased
[2022-12-22] MEDS ORDERED: ONDANSETRON 4 MG/2 ML VIAL IV PRN (09:46)
[2022-12-22] MEDS ORDERED: DEXTROSE 10% 250 ML BAG IV PRN ×2 (10:31)
[2022-12-22] MEDS ORDERED: GLUCAGON 1 MG VIAL IM PRN (10:31)
[2022-12-22] MEDS ORDERED: PSYLLIUM POWDER 3.7 GM/PACK PO PRN (10:47)
[2022-12-22] MEDS: allopurinoL 300 MG TABLET PO SCH (11:27)
[2022-12-22] MEDS: BACILLUS COAGULANS CAPLET PO SCH (11:27)
[2022-12-22] MEDS: INSULIN LISPRO 100 UNIT/ML SUBCUT SCH ×3 (12:05→21:30)
[2022-12-22] MEDS: PANTOPRAZOLE 40 MG TABLET PO SCH (12:21)
[2022-12-22] MEDS: HYOSCYAMINE 0.125 MG TABLET SL SCH ×2 (12:21→17:37)
[2022-12-22] MEDS: MULTIVITAMIN (BEROCCA) TABLET PO SCH (17:37)
[2022-12-22] MEDS: LORATADINE 10 MG TABLET PO SCH (21:27)
[2022-12-22] MEDS: MULTIVITAMIN (CENTRUM) TABLET PO SCH (21:28)
[2022-12-22] MEDS: fentaNYL 100 MCG/HR PATCH TRANSDERM SCH (21:29)
[2022-12-23] MEDS: HYOSCYAMINE 0.125 MG TABLET SL SCH ×4 (00:15→17:30)
[2022-12-23] MEDS: LEVOTHYROXINE 175 MCG TABLET PO SCH (05:58)
[2022-12-23 06:31] LABS: Basophils % 1.2 % (0.0-0.8); Eosinophils % 1.2 % (0.00-10.9); Hematocrit 19.4 VOL% (42.0-52.0); Hemoglobin 6.5 GM/DL (14.0-18.0); Immature Granulocytes % 9.9 %; Immature Granulocytes Absolute 0.16 #; Lymphocytes # 0.4 10*3/uL (1.4-4.0); Mean Corpuscular HGB Conc 33.5 GM/DL (32-36); Mean Corpuscular Volume 90.2 FL (87-102); Mean Platelet Volume 9.5 FL (9.6-12.0); Monocytes # 0.3 10*3/uL (0.11-0.8); Monocytes % 16.8 % (1.7-12.7); NRBC # 0.17 10*3/uL; Neutrophils % 47.9 % (38.7-73.9); Red Blood Count 2.15 MC/CUMM (3.8-5.5); Red Cell Distribution Width 15.5 % (9.3-17.3); White Blood Count 1.61 T/CUMM (4-12)
[2022-12-23 06:38] LABS: Platelet Count 31 T/CUMM (130-400)
[2022-12-23 06:54] LABS: Band Neutrophils 1 % (0-10); Eosinophils 4 % (0-10); Lymphocytes 26 % (20-55); Nucleated Red Blood Cells 7 /100 WBC (0-5); Platelet Estimate Decreased; Total Cells Counted 100
[2022-12-23 06:55] LABS: Microcytosis Slight
[2022-12-23 07:13] LABS: Albumin 2.6 G/DL (3.4-5.0); Bilirubin,Total 0.8 MG/DL (0.20-1.00); Calcium 8.2 MG/DL (8.5-10.1); Osmolality,Calculated 273.7 MOS/KG (273-304); Potassium 3.9 MMOL/L (3.5-5.1)
[2022-12-23] MEDS: INSULIN LISPRO 100 UNIT/ML SUBCUT SCH ×4 (08:43→21:30)
[2022-12-23] MEDS ORDERED: SODIUM CHLORIDE 0.9% 1,000 ML IV PRN ×2 (09:06→09:27)
[2022-12-23] MEDS: DEXAMETHASONE 0.5 MG TABLET PO SCH (09:26)
[2022-12-23] MEDS: BACILLUS COAGULANS CAPLET PO SCH (09:26)
[2022-12-23] MEDS: PANTOPRAZOLE 40 MG TABLET PO SCH (09:26)
[2022-12-23] MEDS: allopurinoL 300 MG TABLET PO SCH (09:26)
[2022-12-23] MEDS ORDERED: ACETAMINOPHEN 325 MG TABLET PO PRN (10:28)
[2022-12-23] MEDS: MULTIVITAMIN (BEROCCA) TABLET PO SCH (17:00)
[2022-12-23 17:50] LABS: Hematocrit 24.4 VOL% (42.0-52.0); Hemoglobin 8.1 GM/DL (14.0-18.0)
[2022-12-23] MEDS: LORATADINE 10 MG TABLET PO SCH (21:29)
[2022-12-23] MEDS: MULTIVITAMIN (CENTRUM) TABLET PO SCH (21:29)
[2022-12-24] MEDS: HYOSCYAMINE 0.125 MG TABLET SL SCH ×2 (00:11→05:43)
[2022-12-24 04:56] LABS: Basophils % 1.6 % (0.0-0.8); Eosinophils % 1.6 % (0.00-10.9); Hemoglobin 7.5 GM/DL (14.0-18.0); Immature Granulocytes % 10.2 %; Immature Granulocytes Absolute 0.13 #; Lymphocytes # 0.3 10*3/uL (1.4-4.0); Mean Corpuscular HGB Conc 32.6 GM/DL (32-36); Mean Corpuscular Volume 94.7 FL (87-102); Mean Platelet Volume 9.5 FL (9.6-12.0); Monocytes # 0.2 10*3/uL (0.11-0.8); Monocytes % 14.2 % (1.7-12.7); NRBC # 0.17 10*3/uL; Neutrophils % 50.4 % (38.7-73.9); Red Blood Count 2.43 MC/CUMM (3.8-5.5); Red Cell Distribution Width 15.5 % (9.3-17.3); White Blood Count 1.27 T/CUMM (4-12)
[2022-12-24 04:58] LABS: Platelet Count 23 T/CUMM (130-400)
[2022-12-24 05:22] LABS: Band Neutrophils 1 % (0-10); Eosinophils 2 % (0-10); Hypochromia Slight; Lymphocytes 31 % (20-55); Nucleated Red Blood Cells 7 /100 WBC (0-5); Platelet Estimate Decreased; Total Cells Counted 100
[2022-12-24 05:40] LABS: Albumin 2.5 G/DL (3.4-5.0); Bilirubin,Total 0.7 MG/DL (0.20-1.00); Calcium 7.8 MG/DL (8.5-10.1); Osmolality,Calculated 278.3 MOS/KG (273-304); Total Protein 4.8 G/DL (6.4-8.2)
[2022-12-24] MEDS: LEVOTHYROXINE 175 MCG TABLET PO SCH (05:43)
[2022-12-24] MEDS: INSULIN LISPRO 100 UNIT/ML SUBCUT SCH ×4 (07:53→22:18)
[2022-12-24] MEDS: DEXAMETHASONE 0.5 MG TABLET PO SCH (08:27)
[2022-12-24] MEDS: BACILLUS COAGULANS CAPLET PO SCH (08:27)
[2022-12-24] MEDS: allopurinoL 300 MG TABLET PO SCH (08:27)
[2022-12-24] MEDS: PANTOPRAZOLE 40 MG TABLET PO SCH (08:28)
[2022-12-24] MEDS ORDERED: ALBUTEROL 2.5 MG/3 ML NEB RESP TX PRN (08:39)
[2022-12-24] MEDS ORDERED: SODIUM CHLORIDE 0.9% 1,000 ML IV PRN (08:46)
[2022-12-24] MEDS ORDERED: SKIN HEALING OINT (AQUAPHOR) 50 GM TUBE TOP PRN (14:22)
[2022-12-24] MEDS: VANCOMYCIN 125 MG CAPSULE PO SCH ×2 (16:12→22:17)
[2022-12-24] MEDS: MULTIVITAMIN (BEROCCA) TABLET PO SCH (17:50)
[2022-12-24] MEDS: MULTIVITAMIN (CENTRUM) TABLET PO SCH (22:17)
[2022-12-24] MEDS: LORATADINE 10 MG TABLET PO SCH (22:17)
[2022-12-25] MEDS: VANCOMYCIN 125 MG CAPSULE PO SCH ×4 (03:34→21:25)
[2022-12-25 04:52] LABS: Basophils % 0.7 % (0.0-0.8); Eosinophils % 2.2 % (0.00-10.9); Hematocrit 23.9 VOL% (42.0-52.0); Hemoglobin 7.8 GM/DL (14.0-18.0); Immature Granulocytes % 15.6 %; Immature Granulocytes Absolute 0.21 #; Lymphocytes # 0.4 10*3/uL (1.4-4.0); Lymphocytes % 28.1 % (21.2-54.2); Mean Corpuscular HGB Conc 32.6 GM/DL (32-36); Mean Corpuscular Volume 93.4 FL (87-102); Mean Platelet Volume 9.1 FL (9.6-12.0); Monocytes # 0.3 10*3/uL (0.11-0.8); Monocytes % 19.3 % (1.7-12.7); NRBC # 0.17 10*3/uL; Neutrophils % 34.1 % (38.7-73.9); Red Blood Count 2.56 MC/CUMM (3.8-5.5); Red Cell Distribution Width 15.5 % (9.3-17.3); White Blood Count 1.35 T/CUMM (4-12)
[2022-12-25 04:53] LABS: Platelet Count 19 T/CUMM (130-400)
[2022-12-25 05:15] LABS: Band Neutrophils 4 % (0-10); Eosinophils 4 % (0-10); Lymphocytes 30 % (20-55); Microcytosis Slight; Myelocytes 2 %; Nucleated Red Blood Cells 23 /100 WBC (0-5); Platelet Estimate Decreased; Total Cells Counted 100
[2022-12-25] MEDS: LEVOTHYROXINE 175 MCG TABLET PO SCH (05:53)
[2022-12-25] MEDS: PANTOPRAZOLE 40 MG TABLET PO SCH (08:42)
[2022-12-25] MEDS: BACILLUS COAGULANS CAPLET PO SCH (08:42)
[2022-12-25] MEDS: DEXAMETHASONE 0.5 MG TABLET PO SCH (08:42)
[2022-12-25] MEDS: allopurinoL 300 MG TABLET PO SCH (08:42)
[2022-12-25] MEDS ORDERED: SODIUM CHLORIDE 0.9% 1,000 ML IV PRN ×2 (09:57→16:38)
[2022-12-25] MEDS: INSULIN LISPRO 100 UNIT/ML SUBCUT SCH ×4 (09:59→21:30)
[2022-12-25] MEDS ORDERED: GLUCAGON 1 MG VIAL IM PRN (10:20)
[2022-12-25] MEDS ORDERED: DEXTROSE 50% 25 GM/50 ML VIAL IV PRN (10:20)
[2022-12-25] MEDS: MULTIVITAMIN (BEROCCA) TABLET PO SCH (18:17)
[2022-12-25] MEDS: fentaNYL 100 MCG/HR PATCH TRANSDERM SCH (21:22)
[2022-12-25] MEDS: LORATADINE 10 MG TABLET PO SCH (21:25)
[2022-12-25] MEDS: MULTIVITAMIN (CENTRUM) TABLET PO SCH (21:25)
[2022-12-26] MEDS: VANCOMYCIN 125 MG CAPSULE PO SCH ×2 (03:30→10:20)
[2022-12-26 05:13] LABS: Basophils % 1.9 % (0.0-0.8); Eosinophils % 1.4 % (0.00-10.9); Hematocrit 27.6 VOL% (42.0-52.0); Immature Granulocytes % 14.6 %; Immature Granulocytes Absolute 0.31 #; Lymphocytes # 0.5 10*3/uL (1.4-4.0); Lymphocytes % 25.4 % (21.2-54.2); Mean Corpuscular HGB Conc 32.6 GM/DL (32-36); Mean Corpuscular Volume 93.6 FL (87-102); Monocytes # 0.4 10*3/uL (0.11-0.8); Monocytes % 19.2 % (1.7-12.7); NRBC # 0.36 10*3/uL; Neutrophils % 37.5 % (38.7-73.9); Platelet Count 41 T/CUMM (130-400); Red Blood Count 2.95 MC/CUMM (3.8-5.5); Red Cell Distribution Width 15.6 % (9.3-17.3); White Blood Count 2.13 T/CUMM (4-12)
[2022-12-26] MEDS: LEVOTHYROXINE 175 MCG TABLET PO SCH (05:35)
[2022-12-26 05:36] LABS: Atypical Lymphocytes Few; Band Neutrophils 4 % (0-10); Eosinophils 1 % (0-10); Lymphocytes 40 % (20-55); Nucleated Red Blood Cells 12 /100 WBC (0-5); Platelet Estimate Decreased; Total Cells Counted 100
[2022-12-26] MEDS: INSULIN LISPRO 100 UNIT/ML SUBCUT SCH ×2 (08:35→11:01)
[2022-12-26] MEDS: PANTOPRAZOLE 40 MG TABLET PO SCH (09:16)
[2022-12-26] MEDS: BACILLUS COAGULANS CAPLET PO SCH (09:17)
[2022-12-26] MEDS: allopurinoL 300 MG TABLET PO SCH (09:17)
[2022-12-26] MEDS: DEXAMETHASONE 0.5 MG TABLET PO SCH (09:17)
[2022-12-26 12:01] VITALS: BP 145/71
== END 2022-12-26 13:00 | disposition home health service (06) | DRG 393 ==
LOC: N.ED 06:30 → N.3E 09:27
PROVIDERS: ADMIT Internal Medicine; ATTEND Internal Medicine